=== PATIENT | male | born 1985 | race Caucasian/White ===

== ENCOUNTER 2018-08-26 17:53 | Emergency (ER) | payer BC ==
[2018-08-26] MEDS ORDERED: Bacitracin Oint 1 GM U/D Packet TOP ONE (18:38)
[2018-08-26] MEDS ORDERED: Ketorolac 60 MG/2 ML SDV IM ONE (18:38)
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
== END 2018-08-26 19:29 | disposition home or self-care (01) ==
LOC: JP.ED 17:53
DX: T20.14XA Burn of first degree of nose (septum), initial encounter (principal); Z88.1 Allergy status to other antibiotic agents; X08.8XXA Exposure to other specified smoke, fire and flames, initial encounter
CPT/HCPCS: 99282